=== PATIENT | female | born 1935 | race Caucasian/White ===

== ENCOUNTER 2019-11-18 07:37 | Day surgery (SDC) | payer MEDICARE, SELFPAY ==
[2019-06-13 11:11] VITALS: BMI 28.0
[2019-11-10 13:53] VITALS: BMI 28.0
--- NOTE | 2019-11-12 09:05 | EKG12_ITS ---
Test Reason : PREOP Blood Pressure : / mmHG Vent. Rate : 076 BPM Atrial Rate : 076 BPM P-R Int : 226 ms QRS Dur : 086 ms QT Int : 382 ms P-R-T Axes : 055 -21 053 degrees QTc Int : 429 ms Sinus rhythm with 1st degree A-V block Otherwise normal ECG Confirmed by BETO THOMAS ([id number]), copy editor LEVI HOUSE ([id number]) on 11/13/2019 2:37:11 PM Referred By: Radha Parisi Confirmed By:BETO THOMAS
[2019-11-12 09:50] LABS: Hematocrit 39.3 % (37-47); Hemoglobin 12.6 g/dL (12.0-15.0); Mean Corp Hgb Conc 32.1 g/dL (32-36); Mean Corpuscular Hgb 29.8 pg (27.0-32.0); Mean Corpuscular Volume 92.9 fL (81-99); Mean Platelet Vol. 9.8 fl (6.2-12.0); Platelet Count 177 K/mm3 (150-450); RBC Distribution Width CV 13.7 % (11.6-14.6); Red Blood Count 4.23 M/mm3 (4.2-5.4); White Blood Count 5.2 K/mm3 (4.4-11.0)
[2019-11-12 10:16] LABS: ALB/GLOB Ratio 1.2 RATIO (0.9-2.4); AST(SGOT) 18 U/L (15-37); Alanine Aminotransfer ALT/SGPT 19 U/L (13-56); Albumin, Serum 3.8 g/dL (3.2-5.0); Alkaline Phosphatase 60 U/L (45-117); Anion Gap 4 (5-15); BUN 20 mg/dL (7-18); BUN/Creat Ratio 22.9 RATIO (10-20); Calcium,Total 8.9 mg/dL (8.5-10.1); Chloride 105 mmol/L (98-107); Creatinine, Serum 0.87 mg/dL (0.55-1.02); EST Glomerular Filtration Rate 66 mL/min (>60); Est Glom Filt Rate - Afr Amer 80 mL/min (>60); Globulin 3.3 g/dL (2.2-4.2); Glucose 207 mg/dL (74-106); Potassium 4.1 mmol/L (3.5-5.1); Protein, Total 7.1 g/dL (6.4-8.2); Sodium Level 138 mmol/L (136-145)
[2019-11-12 10:22] LABS: Hemoglobin A1c 7.2 % (3.8-5.6)
[2019-11-18] VITALS (10 sets, daily range): BP systolic 129–154; BP diastolic 65–91; PULSE 62–81; RESP 14–16; TEMP 36.2–37.1; O2SAT 95–100; BMI 26.4; BMI 26.3
--- NOTE | 2019-11-18 | HYST_PTH ---
PATIENT: ILAN PURCELL LOC: [facility] U#:[id number] AGE/SX: 84/F ROOM: RE11/18/[address]: Dr. Radha Parisi MD : [id number] BED: DIS: 11/19/2019 SPEC #: [id number] RECD: 11/18/19 14:11 STATUS: JARON SARA #: [id number] [place]: 11/18/19 00:[address]: Radha Parisi DEPT: SURGICAL PATHOLOGY RECD BY: Cedric Steen ENTERED: 11/19/19 12:04 SP TYPE: HYSTERECT OTHR DR: MD Dr. Lincoln Patel MD Tissues: Uterus, NOS Procedures: Surgery Specimen Level V HEADER OPERATION: ERAS, vaginal hysterectomy, left oophorectomy PRE-OP DIAGNOSIS: Incomplete uterovaginal prolapse TISSUE SUBMITTED: Uterus, cervix, left ovary MICROSCOPIC DIAGNOSIS Uterus, cervix, left ovary, vaginal hysterectomy and left oophorectomy: Cervix - mild chronic cystic cervicitis. Endometrium - simple cystic endometrial hyperplasia without atypia. Endometrial polyp - simple cystic endometrial hyperplasia without atypia. Myometrium - a subserosal leiomyoma (1.2 cm in greatest dimension). Cyst - Consistent with peritubal cyst, multilocular. See comment. SJ:mena 11/20/19 COMMENT Ovarian tissue is not identified. Clinical correlation is necessary. Case has been reviewed in consultation with Dr. Jaramillo who concurs with the above diagnosis. IDC:AM MICROSCOPIC DESCRIPTION Slides are reviewed. GROSS DESCRIPTION Received in fixative is one container labeled with the patient's name and designated uterus. The specimen consists of a uterus with attached cervix measuring 11 x 4.5 x 3 cm and weighing 71 gm. The ectocervix is grossly unremarkable. The cervical os is oval in contour. The endocervical canal measures 3 cm in length and is grossly unremarkable. The triangular endometrial cavity measures 3 x 2.5 cm. Endometrial cavity shows two polyps. Each polyp measures approximately 6 mm in greatest dimension. The velvety, light thakkar endometrium measures up to 0.1 cm in thickness. The myometrium measures 1.5 cm in average thickness. The myometrium contains a firm, rubbery, subserosal nodule resembling a leiomyoma measuring 1.2 cm in greatest dimension. Present free in the container are two irregular fragments of cystic, thakkar tissue ranging in size from 1.5 to 2.5 cm. Fabricator Artificial Breast sections are submitted as follows: 1 - anterior cervix, 2 - posterior cervix, 3 & 4 - anterior endometrium, 5 - anterior endometrial polyp, 6 & 7 - posterior myometrial wall, 8??subserosal myometrial nodule, 9 & 10 - cystic fragments free in container, totally submitted. / AM:mena 11/19/19 TC:5 CPT: 82553
--- NOTE | 2019-11-18 07:14 | HP.PCM_ITS ---
- Problem List (1) Incomplete uterovaginal prolapse Status: Chronic Comment: plan TVH combo case with rodríguez. be mindful of left hip/knee. History and Physical Date of Admission: 11/18/19 Intake Vital Signs 11/10/19 BMI 28.0 11/10/19 Height 5 ft 7 in 11/10/19 Weight: 177 lb 2 oz 11/10/19 BMI 27.7 11/10/19 BP 156/90 H Intake Visit Reasons: pre op Oracle Database Developer Required: No Accompanied by: Daughter Is patient in pain?: No Allergies Sulfa (Sulfonamide Antibiotics) Allergy (Intermediate, Verified 11/10/19 13:24) Rash Medications aspirin 81 mg chewable tablet 81 mg PO DAILY 06/13/19 [History Confirmed 11/10/19] metformin 500 mg tablet 500 mg PO BID 06/13/19 [History Confirmed 11/10/19] metoprolol tartrate 100 mg tablet 100 mg PO BID 06/13/19 [History Confirmed 11/10/19] ramipril 10 mg capsule 10 mg PO BID 06/13/19 [History Confirmed 11/10/19] simvastatin 20 mg tablet 20 mg PO DAILY 06/13/19 [History Confirmed 11/10/19] Is last menstrual period known: No Post menopausal: Yes Patient : No : No [facility] Medical History Arthritis (Acute) CHF (congestive heart failure) (Acute) Diabetes (Acute) Hyperlipidemia (Acute) Hypertension (Chronic) Surgical History H/O heart artery stent (Acute) H/O ovarian cystectomy (Acute) Hip joint replacement status (Acute) History of appendectomy (Acute) Total knee replacement status (Acute) Family History Mother Diabetes Social History (Updated 11/10/19 @ 14:[address] Radha Parisi MD) Smoking Status: Never smoker alcohol intake: never substance use type: does not use caffeine: No what type of physical activity do you participate in: none seatbelt use: always do you feel safe at home: Yes HPI pre op: Details: ILAN PURCELL is a 84 year old who presents for preoperative visit planning a TVH LSO combo case with Dr. Childs. Pregancy History 3 Elective abortions Hx Para 3 Spontaneous abortions Hx # Term Pregnancies Ectopic pregnancies Hx # Pregnancies Multiple births # of living children ROS Const Constitutional: Denies fatigue, fever(s), headache(s), increased appetite, poor appetite, weight gain or weight loss ENT ENT: Denies dizziness or dry mouth Cardio Card: Denies chest pain Resp Resp: Denies cough or dyspnea GI GI: Reports as per HPI; denies abdominal pain, constipation, nausea or vomiting : Reports prolapse symptoms, urinary frequency, urinary incontinence and urinary urgency Musc Musc: Reports joint pain and back pain Skin Skin/Breast: Denies hair loss, change in hair, dry skin, breast lump, breast pain or breast skin changes Neuro Neuro: Denies dizziness Psych Psych: Denies anxiety or depression Endo Endo: Denies cold intolerance, excessive sweating, heat intolerance or increased thirst Gilberto/Lymph Hematologic/Lymphatic: Denies easy bleeding, Denies easy bruising, Denies enlarged lymph nodes Exam Const General: cooperative, healthy appearing, comfortable, no acute distress, well developed Nutritional Appearance: average body habitus Orientation: alert [facility] Head: normal to inspection, normocephalic Ears: hearing grossly normal bilaterally, external ears normal Nose: external nose normal, nares normal Face and sinus: normal facial exam Neck Neck: normal visual inspection, no lymphadenopathy, trachea midline Thyroid: thyroid normal Chest Chest palpation & inspection: normal inspection of the chest Resp Effort & Inspection: normal respiratory effort Auscultation: clear to auscultation bilaterally Cardio Rate: regular rate Rhythm: regular rhythm Heart Sounds: S1 normal, S2 normal GI Inspection: normal to inspection, non-distended Palpation: soft, no hepatosplenomegaly Musc Cervical Spine: other Other: gross motor intact no deficits, full bilateral strength Skin General: no rashes or lesions noted Neuro General: alert, awake, moves all extremities, no focal motor deficits Motor: muscle tone normal throughout Extrem General: normal to inspection, no pedal edema Psych Appearance: grossly normal Mental Status: mental status grossly normal Affect: normal affect Speech and Movement: speech and movement normal Assessment & Plan Problems 1. Incomplete uterovaginal prolapse N81.2 plan TVH combo case with rodríguez. be mindful of left hip/knee. Plan After discussing the patient's diagnosis and treatment plan options, patient wishes to proceed with surgical management. I have discussed with the patient the risks, benefits, and alternatives of the procedure which include but are not limited to risks of anesthesia, bleeding, infection, possible damage to bowel, bladder, or surrounding vasculature which could lead to additional surgery to evaluate any complications. Patient agrees to procedure and wishes to proceed. ACOG/uptodate references given for additional information regarding procedure. Coding Level of Care Code No Charge Diagnoses Incomplete uterovaginal prolapse N81.2 UPDATE- I have seen the patient and performed any clinically relevant updates to the history and physical exam. Radha Parisi MD
[2019-11-18 08:21] LABS: Bedside Glucose 244 mg/dL (70-110)
[2019-11-18] MEDS: Acetaminophen 500 MG Tablet 1000 MG PO ×3 (08:26→22:21)
[2019-11-18] MEDS: Scopolamine 1mg/72hr Patch 1 PATCH TRANSDERM. (08:26)
[2019-11-18] MEDS: Gabapentin 600 MG Tablet PO (08:27)
[2019-11-18] MEDS: Celecoxib 200 MG Capsule 400 MG PO (08:28)
[2019-11-18] MEDS: Lactated Ringers 1,000 ML 40 ML IV (08:43)
[2019-11-18] MEDS: dexAMETHasone 10 MG/ML Vial 8 MG IV (08:44)
[2019-11-18] MEDS: Enoxaparin 40 MG/0.4 ML Syringe SC (08:50)
[2019-11-18] MEDS: Insulin Lispro 100 UNIT/ML INSULN.PEN SC ×4 (08:57→22:27)
[2019-11-18] MEDS: Cefazolin 2 GM in 0.9% Normal Saline 100 ML IV (09:56)
--- NOTE | 2019-11-18 10:00 | PCM.OPRPT ---
Problem List (1) Incomplete uterovaginal prolapse Status: Chronic Comment: plan TVH combo case with rodríguez. be mindful of left hip/knee. Report of Operation Date of Procedure: 11/18/19 Pre-Operative Diagnosis: prolapse Post-Operative Diagnosis: same plus left complex cystic ovary Surgery/Procedure Performed:: tvh left oophorectomy Description of Surgical Findings:: nl uterus tubes right ovary and multicystic left ovary locomotive switch operator: Rosalind Gage Type of Anesthesia:: General Special Medications: none Specimen's removed: uterus Drains: daley Estimated Blood Loss (mL): 150 Fluids Replaced: crystalloid Description of Procedure: Patient was taken to the operating room and was placed under general anesthesia was prepped and draped in normal sterile fashion in the dorsal lithotomy position. Preoperative antibiotics and SCDs and Daley catheter was placed inside the bladder. Weighted speculum was placed in the vagina and the anterior and posterior lip of the cervix was grasped with 2 Khari clamps and circumferentially injected with dilute vasopressin. A circumferential incision was made with a scalpel and the posterior cul-de-sac was entered into sharply and a longneck speculum was placed. The anterior cul-de-sac was also dissected down and entered into sharply and the uterosacral ligaments were clamped cut and suture ligated bilaterally followed by the cardinal ligaments which were Clamped cut and suture ligated bilaterally with 0 Monocryl. The uterus serially descended and progressive bites were taken bilaterally up to the level of the utero-ovarian ligament bilaterally which was clamped transected and double ligated with 0 Monocryl suture and 0 Vicryl free tie. Bilateral fallopian tubes and ovaries were visualized but difficult to see. The left ovary was noted to be complex and cystic in appearance and therefore the decision to remove it was made. The IP ligament was transected at the base of the ovary and ovary removed and sent to pathology for analysis. Pedicle was double ligated with 0 Monocryl and 0 Vicryl. Additional bleeding was noted at the area above where the tip of the clamp was and this was grasped with a ring angle clamp and 2 separate areas and sutured with 2-0 Vicryl to obtain hemostasis. Bilateral pelvic sidewalls were again double checked and hemostasis was noted. Posterior peritoneum and the vagina were closed with [id number] 0 Vicryl pop offs including the posterior and anterior peritoneum in the reapproximation. Excellent hemostasis was noted. All instruments removed from the vagina clear urine was noted at the end of the procedure. see dr rareguin's note for additional operative information. Grafts/Implants Used: see rodríguez's note - Complications none - Admit VTE Documentation VTE Present on Admission: No VTE Mechan Device Prophylaxis: SCD's Multi Select Codes - Urinary/Genital Urinary/Genital CPT Codes: 04601 TVH+BS/O <250gr uterus
--- NOTE | 2019-11-18 10:02 | PCM.DC.VHY ---
Discharge Diet: No Restrictions Discharge Activity: Return to Normal Activity, May Not Drive, May Shower May resume sexual activity in: 6-8 weeks Call your doctor if your incision/area has: Continuous Slow Oozing, Sudden Increased Bleeding, Increased Pain/ Swelling, Increased Redness, Foul Smelling Discharge Call your doctor if you observe: Fever of 101 or Higher, Inability to urinate, Inability to have a bowel movement, Using more than one pad per hour Allergies/Adverse Reactions: Allergies Sulfa (Sulfonamide Antibiotics) Allergy (Intermediate, Verified 11/18/19 08:10) Rash Medications to take at Discharge aspirin 81 mg chewable tablet 81 mg PO DAILY 06/13/19 metformin 500 mg tablet 500 mg PO BID 06/13/19 metoprolol tartrate 100 mg tablet 100 mg PO BID 06/13/19 ramipril 10 mg capsule 10 mg PO BID 06/13/19 simvastatin 20 mg tablet 20 mg PO DAILY 06/13/19 Naproxen [Naprosyn] 250 - 500 mg PO Q8H PRN PRN #30 tab 11/18/19 Oxycodone HCl/Acetaminophen [Percocet 5-325] 1 - 2 tab PO Q6H PRN PRN 7 Days #15 tab 11/18/19 The following prescriptions were given: Naproxen [Naprosyn] 250 - 500 mg PO Q8H PRN PRN #30 tab PRN Reason: MILD PAIN Transmission Status: Received by [facility] Oxycodone HCl/Acetaminophen [Percocet 5-325] 1 - 2 tab PO Q6H PRN PRN 7 Days #15 tab PRN Reason: Pain Transmission Status: Received by [facility] Orders to be completed after discharge: Magnesium Time Frame: 11/11/19, Facility: [facility], Location: Laboratory Primary Care Physician: Lincoln Canales MD [Primary Care Provider] - Test Results: Test results from this visit will be discussed in further detail at your follow-up appointment, if applicable. Please Follow Up With: Radha Parisi MD - [phone]
--- NOTE | 2019-11-18 10:46 | HP.PCM_ITS ---
Problem List (1) Urethral hypermobility Status: Acute (2) Incomplete uterovaginal prolapse Status: Chronic Comment: plan TVH combo case with rodríguez. be mindful of left hip/knee. History of Present Illness Date of Admission: 11/18/19 Chief Complaint: pelvic prolapse The patient is a 84 year old F with pelvic organ prolapse. She has undergone cystoscopy and urodynamics. Risks benefits and alternatives were discussed with her and her daughter. She has decided to proceed with surgical intervention. The specific risks of COVID-19 were also discussed. Past Medical History Past Medical History (Chronic Problems): Chronic Problems (Last Reviewed 11/10/19 @ 13:25 by Ana Santiago) Incomplete uterovaginal prolapse (Chronic) plan TVH combo case with rodríguez. be mindful of left hip/knee. Medical History: Medical History (Last Reviewed 11/18/19 @ 10:[address] Val Childs MD) Arthritis M19.90 CHF (congestive heart failure) I50.9 Diabetes E11.9 Hyperlipidemia E78.5 Hypertension I10 Allergies Sulfa (Sulfonamide Antibiotics) Allergy (Intermediate, Verified 11/18/19 08:10) Rash Home Medications: Ambulatory Orders Medication Instructions Recorded aspirin 81 mg chewable tablet 81 mg PO DAILY 06/13/19 metformin 500 mg tablet 500 mg PO BID 06/13/19 metoprolol tartrate 100 mg tablet 100 mg PO BID 06/13/19 ramipril 10 mg capsule 10 mg PO BID 06/13/19 simvastatin 20 mg tablet 20 mg PO DAILY 06/13/19 Naproxen [Naprosyn] 250 - 500 mg PO Q8H PRN PRN #30 tab 11/18/19 Oxycodone HCl/Acetaminophen 1 - 2 tab PO Q6H PRN PRN 7 Days 11/18/19 [Percocet 5-325] #15 tab Surgical History: Surgical History (Last Reviewed 11/18/19 @ 10:[address] Val Childs MD) H/O heart artery stent Z95.5 H/O ovarian cystectomy Z98.890, Z87.42 Hip joint replacement status Z96.649 left History of appendectomy Z90.49 Total knee replacement status Z96.659 left Smoking Status: Never smoker Review of Systems Constitutional: Denies: Anorexia, Chills, Fever Eyes: Denies: Vision Change HEENT: Denies: Difficulty Swallowing, Visual Changes Cardiovascular: Denies: Chest Pain, Chest Pressure Respiratory: Denies: Cough, Shortness of Breath Gastrointestinal: Denies: Abdominal Pain, Nausea, Vomiting Genitourinary: Reports: Urgency. Denies: Dysuria, Hematuria Gynecological: Denies: Vaginal bleeding, Vaginal itching Musculoskeletal: Denies: Muscle pain Skin: Denies: Wounds Neurological: Denies: Difficulty swallowing Endocrine: Denies: Change in Body Habitus VTE Information - Inpt Only VTE Present on Admission: Yes VTE Mechan Device Prophylaxis: SCD's VTE Pharm Prophylaxis ordered?: Yes Patient Problems: Active and Suspected Problems (Last Reviewed 11/10/19 @ 13:25 by Ana Santiago) Urethral hypermobility (Acute) - Physical Exam Vitals/I&O's: Vital Signs Temp Pulse Resp BP Pulse Ox 98.8 F 76 15 135/75 H 98 11/18/19 08:12 11/18/19 08:12 11/18/19 08:12 11/18/19 08:12 11/18/19 08:12 Oxygen Delivery Method Room Air Weight: 78.9 kg Body Mass Index (BMI) 26.4 General: Alert, Oriented x3, Cooperative, No apparent distress HEENT: Atraumatic, EOMI Oral: Moist Mucosa Neck: Supple, Trachea Midline Lungs: Normal air movement Cardiovascular: Regular rate Abdomen: Soft, Non Tender, Non-Distended Extremities: No cyanosis Skin: No rashes Musculoskeletal: No Muscle Wasting Neurological: Cranial nerves II-XII grossly intact, Neuro grossly intact Psych/Mental Status: Normal Affect Laboratory Results 11/18/19 08:15: POC Glucose 244 H Current Medications Lactated Ringer's () 1,000 mls @ 40 mls/hr IV .Q25H REINALDO Last Admin: 11/18/19 08:43 Dose: 40 mls/hr Documented by: Lactated Ringer's () 1,000 mls @ 70 mls/hr IV .[id number] [facility] Insulin Human Lispro (Humalog Kwikpen (Bkc)) 0 unit SC Q4H PRN PRN; Protocol PRN Reason: BG >/= 180, SEE PROTOCOL Last Admin: 11/18/19 08:57 Dose: 2 units Documented by: Assessment/Plan All Active Problems (Last Reviewed 11/10/19 @ 13:25 by Ana Santiago) Urethral hypermobility (Acute) Proceed with surgical intervention, anterior repair with dermis, bilateral sacrospinous ligament fixation, midurethral sling and cystoscopy Procedure Criteria Procedure Type: Elective COVID Risk Discussion: The surgeon/proceduralist and patient have discussed in detail the risk of exposure to and/or potential harm posed by the COVID-19 virus with having a surgery/procedure at this time versus the risk of delaying the surgery/procedure. It is not possible to know either the risk of delaying the surgery or procedure or chance of getting an infection with perfect accuracy, but a joint decision was made between the patient and the surgeon/proceduralist to proceed at this time with the scheduled surgery/procedure as indicated on the consent form.
[2019-11-18] MEDS: Lactated Ringers 1,000 ML 70 ML IV ×3 (12:40→22:30)
[2019-11-18] MEDS: Estrogens,Conj. 1 Tube 1 DOSE (12:48)
[2019-11-18] MEDS: Ondansetron 4 MG/2 ML Vial IV (13:00)
[2019-11-18] MEDS: Vasopressin 20 UNITS/ML Vial (13:21)
[2019-11-18 13:41] LABS: Bedside Glucose 190 mg/dL (70-110)
--- NOTE | 2019-11-18 13:59 | OP.PCM_ITS ---
Problem List (1) Urethral hypermobility Status: Acute (2) Incomplete uterovaginal prolapse Status: Chronic Comment: plan TVH combo case with rodríguez. be mindful of left hip/knee. Report of Operation Date of Procedure: 11/18/19 Pre-Operative Diagnosis: Uterovaginal prolapse, urethral hypermobility Post-Operative Diagnosis: Same Surgery/Procedure Performed:: Anterior repair with dermis, posterior repair with dermis, bilateral sacrospinous ligament fixation, mid urethral sling, cystoscopy with bilateral ureteral catheterization Type of Anesthesia:: General Estimated Blood Loss (mL): 50cc Description of Procedure: The patient is an 84-year-old female with pelvic organ prolapse who underwent evaluation with cystoscopy and urodynamics. Informed consent was obtained after discussing risks benefits and alternatives including that of COVID-19. Patient was taken to the operating room and placed on the operating room table. Anesthesia monitored the head, neck, airway, IV access and vital signs throughout the case. Once anesthesia was appropriately ministered the patient was prepped and draped in usual sterile fashion. A Jaramillo catheter was inserted sterilely. Dr. Blair Plummer proceeded with her portion of the procedure and closed the vaginal cuff. The anterior vaginal wall was injected with vasopressin for hydrostatic dissection and hemostatic control. A midline vertical incision approximately 2-1/2 cm in length was then made in both sharp and blunt dissection was performed bilaterally until the ischial spines were palpable and freed from surrounding tissues. On the patient's right side, there is an area of concern for ureteral presence that was left in place and the sacrospinous suture was placed around it. On the patient's left side, I had difficulty freeing the sacrospinous ligament from the surrounding tissues. There were no issues once the suture was passed. The sutures were then passed through the dermis and then out into the apex of the vagina in full-thickness fashion. The dermis was then sutured in interrupted fashion laterally to the white lines and in the tissues adjacent to the bladder neck. The vaginal mucosa was then closed with running interlocking 2-0 Vicryl. The dermis was then tied down to the sacrospinous ligaments bilaterally. At this time the cystoscope was inserted through the urethra under direct visualization into the urinary bladder. The bladder mucosa was visualized in its entirety. There were no injuries, foreign body or defects to the bladder identified. Bilateral ureteral orifices were visualized and intubated with a whistle-tip catheter without difficulty to 20 cm. The Jaramillo catheter was then reinserted and attention was turned towards the posterior vaginal wall. It was injected submucosally with vasopressin. A midline incision was made and then sharp and blunt dissection was performed until the rectovaginal fascia was identified. The patient's pelvis is wide and the decision was made to use dermis to bridge the defect centrally. It was tacked to the rectovaginal fascia on either side using 2-0 Vicryl interrupted sutures. The perineal body was brought together as much as possible in a 2 layer closure. The vaginal mucosa was then closed over the repair using running interlocking 2-0 Vicryl. The area of the mid urethra was then injected in the area of the submucosa with vasopressin. A midline incision was made. Dissection on either side of the urethra was done with avoidance of entry into the urethra. Using the trochars the Altis was passed without difficulty. It lay flat against the urethra without tension. The tensioning suture was cut and the mucosa was closed over it using running interlocking Vicryl. A cystourethroscopy through the urethra was then performed revealing no entry into the urinary bladder or the urethra with the sling. The bladder was emptied and the Jaramillo catheter was replaced. The vagina was packed with Premarin cream and vaginal packing. There were no complications during the procedure. She was awakened and taken to the recovery room in good condition. Grafts/Implants Used: Dermis ([place]), sling (Altis) - Complications none - Admit VTE Documentation VTE Present on Admission: Yes VTE Mechan Device Prophylaxis: SCD's VTE Pharm Prophylaxis ordered?: Yes
--- NOTE | 2019-11-18 14:07 | PCM.DC.URO ---
Discharge Diet: No Restrictions Discharge Activity: May Not Drive, May Shower May resume sexual activity in: 6-8 weeks Additional Activity Instructions:: No strenuous activity, no exercising, no lifting over 5 pounds, no vacuuming, no swimming, no tub bathing, no hot tubs no intercourse. Patient is to continue insertion of her vaginal estrogen cream Call your doctor if your incision/area has: Continuous Slow Oozing, Sudden Increased Bleeding, Increased Pain/ Swelling, Increased Redness, Foul Smelling Discharge Call your doctor if you observe: Fever of 101 or Higher, Inability to urinate, Inability to have a bowel movement, Using more than one pad per hour Allergies/Adverse Reactions: Allergies Sulfa (Sulfonamide Antibiotics) Allergy (Intermediate, Verified 11/18/19 08:10) Rash Medications to take at Discharge aspirin 81 mg chewable tablet 81 mg PO DAILY 06/13/19 metformin 500 mg tablet 500 mg PO BID 06/13/19 metoprolol tartrate 100 mg tablet 100 mg PO BID 06/13/19 ramipril 10 mg capsule 10 mg PO BID 06/13/19 simvastatin 20 mg tablet 20 mg PO DAILY 06/13/19 Naproxen [Naprosyn] 250 - 500 mg PO Q8H PRN PRN #30 tab 11/18/19 Oxycodone HCl/Acetaminophen [Percocet 5-325] 1 - 2 tab PO Q6H PRN PRN 7 Days #15 tab 11/18/19 The following prescriptions were given: Naproxen [Naprosyn] 250 - 500 mg PO Q8H PRN PRN #30 tab PRN Reason: MILD PAIN Transmission Status: Received by [facility] Oxycodone HCl/Acetaminophen [Percocet 5-325] 1 - 2 tab PO Q6H PRN PRN 7 Days #15 tab PRN Reason: Pain Transmission Status: Received by [facility] Orders to be completed after discharge: Magnesium Time Frame: 11/11/19, Facility: [facility], Location: Laboratory Primary Care Physician: Lincoln Canales MD [Primary Care Provider] - Test Results: Test results from this visit will be discussed in further detail at your follow-up appointment, if applicable. Please Follow Up With: Val Childs MD When: call for appt Proposed Discharge Date: 11/19/19
[2019-11-18 15:17] LABS: Absolute Lymphocyte Count 0.99 X10^3/uL (0.83-4.51); Absolute Neutrophil Count 8.2 X10^3/uL (2.0-7.7); Basophil# 0.02 X10^3/uL; Basophil% 0.2 % (0-1); Eosinophil# 0.01 X10^3/uL; Eosinophils% 0.1 % (0-5); Hematocrit 38.6 % (37-47); Hemoglobin 12.6 g/dL (12.0-15.0); Lymphocyte # 0.99 X10^3/ul (4.0); Lymphocyte % 10.5 % (19-41); Mean Corp Hgb Conc 32.6 g/dL (32-36); Mean Corpuscular Hgb 29.7 pg (27.0-32.0); Mean Platelet Vol. 9.5 fl (6.2-12.0); Monocyte% 2.1 % (0-10); NRBC Flagged by Analyzer 0 % (0-5); Neutrophil # 8.19 X10^3/uL (2.7-7.7); Neutrophil % 86.7 % (47-70); Platelet Count 170 K/mm3 (150-450); RBC Distribution Width CV 13.3 % (11.6-14.6); RBC Distribution Width SD 43.8 fl (35.1-43.9); Red Blood Count 4.24 M/mm3 (4.2-5.4); White Blood Count 9.5 K/mm3 (4.4-11.0)
[2019-11-18] MEDS: Cefazolin 1 GM/50 ML BAG IV ×2 (16:20→22:19)
[2019-11-18] MEDS: Ketorolac 15 MG/ML Vial IV ×2 (16:21→22:21)
[2019-11-18] MEDS: 0.9% Saline Lock 10 ML Syringe IV (16:26)
[2019-11-18 17:16] LABS: Bedside Glucose 183 mg/dL (70-110)
[2019-11-18] MEDS: Docusate Sodium 100 MG Capsule PO (22:19)
[2019-11-18] MEDS: Metoprolol Tartrate 100 MG Tablet PO (22:20)
[2019-11-18] MEDS: Ramipril 10 MG Capsule PO (22:20)
[2019-11-18] MEDS: Atorvastatin Calcium 10 MG Tablet PO (22:20)
[2019-11-18 22:41] LABS: Bedside Glucose 160 mg/dL (70-110)
[2019-11-18] MEDS: Lactated Ringers 300 ML 999 ML IV (23:43)
[2019-11-19 02:25] VITALS: BP 110/52; PULSE 68; RESP 14; TEMP 37; O2SAT 96
[2019-11-19] MEDS: Ketorolac 15 MG/ML Vial IV ×2 (04:53→09:24)
[2019-11-19] MEDS: Acetaminophen 500 MG Tablet 1000 MG PO ×2 (04:53→09:23)
[2019-11-19] MEDS: Cefazolin 1 GM/50 ML BAG IV ×2 (05:01→14:36)
[2019-11-19 05:41] LABS: Hematocrit 33.3 % (37-47); Mean Corpuscular Hgb 30.1 pg (27.0-32.0); Mean Corpuscular Volume 91.2 fL (81-99); Mean Platelet Vol. 9.5 fl (6.2-12.0); Platelet Count 157 K/mm3 (150-450); RBC Distribution Width CV 13.4 % (11.6-14.6); RBC Distribution Width SD 44.3 fl (35.1-43.9); Red Blood Count 3.65 M/mm3 (4.2-5.4); White Blood Count 8.6 K/mm3 (4.4-11.0)
[2019-11-19 05:58] LABS: Anion Gap 4 (5-15); BUN 20 mg/dL (7-18); BUN/Creat Ratio 20.6 RATIO (10-20); Calcium,Total 8.1 mg/dL (8.5-10.1); Chloride 104 mmol/L (98-107); Creatinine, Serum 0.97 mg/dL (0.55-1.02); EST Glomerular Filtration Rate 58 mL/min (>60); Est Glom Filt Rate - Afr Amer 70 mL/min (>60); Estimated Creatinine Clearance 44.33 ml/min; Glucose 142 mg/dL (74-106); Potassium 4.1 mmol/L (3.5-5.1); Sodium Level 136 mmol/L (136-145)
[2019-11-19 06:55] LABS: Bedside Glucose 115 mg/dL (70-110)
--- NOTE | 2019-11-19 08:41 | PCM.PN.OB ---
Patient Problems: Active and Suspected Problems (Last Reviewed 11/18/19 @ 10:[address] Val Childs MD) Urethral hypermobility (Acute) Subjective: Pain controlled. Tolerating po intake. Denies SOB, CP. States mild dizziness due to pain medication. - Physical Exam Vitals/I&O's: Vital Signs Temp Pulse Resp BP Pulse Ox 98.6 F 68 14 110/52 L 96 11/19/19 02:25 11/19/19 02:11/19/19 02:11/19/19 02:11/19/19 02:25 Oxygen Flow Rate (L/min) 2 Oxygen Delivery Method CPAP Weight: 173 lb Body Mass Index (BMI) 26.3 Intake and Output for Last 24 Hours 11/17/19 11/18/19 11/19/19 23:59 23:59 23:59 Intake Total 2814.34 / 2814.34 1664.83 / 1664.83 Output Total 950 / 950 350 / 350 Balance 1864.34 / 1864.34 1314.83 / 1314.83 General: Oriented x3 Lungs: - - normal respiratory effort Abdomen: Soft, Non-Distended Laboratory Results 11/18/19 13:35: POC Glucose 190 H 11/18/19 14:55: WBC 9.5, RBC 4.24, Hgb 12.6, Hct 38.6, MCV 91.0, MCH 29.7, MCHC 32.6, RDW Std Deviation 43.8, RDW Coeff of Andrea 13.3, Plt Count 170, MPV 9.5, Immature Gran % (Auto) 0.400, Neut % (Auto) 86.7 H, Lymph % (Auto) 10.5 L, Jones % (Auto) 2.1, Eos % (Auto) 0.1, Baso % (Auto) 0.2, Absolute Neuts (auto) 8.2 H, Absolute Lymphs (auto) 0.99, Nucleated RBC % 0 11/18/19 16:29: POC Glucose 183 H 11/18/19 22:23: POC Glucose 160 H 11/19/19 05:25: WBC 8.6, RBC 3.65 L, Hgb 11.0 L, Hct 33.3 L, MCV 91.2, MCH 30.1, MCHC 33.0, RDW Std Deviation 44.3 H, RDW Coeff of Andrea 13.4, Plt Count 157, MPV 9.5 11/19/19 05:25: Sodium 136, Potassium 4.1, Chloride 104, Carbon Dioxide 28.0, Anion Gap 4 L, BUN 20 H, Creatinine 0.97, Estim Creat Clear Calc 44.33, Est GFR (MDRD) Af Amer 70, Est GFR (MDRD) Non-Af 58 L, BUN/Creatinine Ratio 20.6 H, Glucose 142 H, Calcium 8.1 L 11/19/19 06:34: POC Glucose 115 H Current Medications Acetaminophen (Tylenol) 1,000 mg PO Q6H [facility] Last Admin: 11/19/19 04:53 Dose: 1,000 mg Documented by: Atorvastatin Calcium (Lipitor) 10 mg PO QHS [facility] Last Admin: 11/18/19 22:20 Dose: 10 mg Documented by: Dextrose (D50w Syringe) 0 gm IV X1 PRN; Protocol PRN Reason: Hypoglycemia Docusate Sodium (Colace) 100 mg PO BID [facility] Last Admin: 11/18/19 22:19 Dose: 100 mg Documented by: Enoxaparin Sodium (Lovenox) 40 mg SC DAILY [facility] Glucagon () 1 mg IM .X1 PRN PRN Reason: Hypoglycemia Cefazolin Sodium () 1 gm in 50 mls @ 100 mls/hr IV Q8 [facility] Last Infusion: 11/19/19 05:35 Dose: Infused Documented by: Sodium Chloride () 250 mls @ 15 mls/hr IV .[id number] PRN PRN Reason: Saline Flush Insulin Human Lispro (Humalog Kwikpen (Bk)) 0 unit SC ACHS [facility]; Protocol Last Admin: 11/19/19 06:56 Dose: Not Given Documented by: Ketorolac Tromethamine (Toradol (Bkc)) 15 mg IV Q6H [facility] Stop: 11/19/19 22:01 Last Admin: 11/19/19 04:53 Dose: 15 mg Documented by: Magnesium Oxide (Mag-Ox 400) 400 mg PO DAILY PRN PRN PRN Reason: Constipation Metoprolol Tartrate (Lopressor (Beta Avila)) 100 mg PO BID [facility] Last Admin: 11/18/19 22:20 Dose: 100 mg Documented by: Nutritional Formula (Lactose Free) (Ensure Enlive) 120 ml PO TIDCM [facility] Last Admin: 11/18/19 16:26 Dose: Not Given Documented by: Ondansetron HCl (Zofran Odt) 4 mg PO Q6H PRN PRN PRN Reason: NAUSEA Oxycodone HCl (Oxyir) 5 - 10 mg PO Q4H PRN PRN PRN Reason: Pain Score 4-10/10 Ramipril (Altace) 10 mg PO BID [facility] Last Admin: 11/18/19 22:20 Dose: 10 mg Documented by: Sodium Chloride () 10 - 40 ml IV UD PRN PRN Reason: SALINE FLUSH Last Admin: 11/18/19 16:26 Dose: 10 ml Documented by: Medical Necessity - Tobacco Use Smoking Status: Never smoker Assessment/Plan All Active Problems (Last Reviewed 11/18/19 @ 10:[address] Val Childs MD) Urethral hypermobility (Acute) TVH LO with combination case Dr Childs postop day #1: Routine care. Fall precautions in place See exam note and discharge orders Dr. Childs Plans home today. Daughter will be with her
[2019-11-19 08:51] VITALS: BP 99/50; PULSE 66; RESP 18; TEMP 36.9; O2SAT 94
[2019-11-19] MEDS: Enoxaparin 40 MG/0.4 ML Syringe SC (09:22)
[2019-11-19 09:23] VITALS: PULSE 66
[2019-11-19] MEDS: Metoprolol Tartrate 100 MG Tablet PO (09:23)
[2019-11-19] MEDS: Ramipril 10 MG Capsule PO (09:23)
[2019-11-19] MEDS: Docusate Sodium 100 MG Capsule PO (09:23)
[2019-11-19] MEDS: 0.9% Saline Lock 10 ML Syringe IV (09:27)
[2019-11-19 12:30] LABS: Bedside Glucose 148 mg/dL (70-110)
[2019-11-19 14:47] VITALS: BP 125/57; PULSE 62; RESP 16; TEMP 36.4; O2SAT 96
[2019-11-19] MEDS: Ondansetron ODT 4 MG Tablet PO (17:27)
== END 2019-11-19 17:30 | disposition home or self-care (01) ==
LOC: SDC 07:38 → AC 07:39 → MS3 10:12
PROVIDERS: Anesthesiology; Urology; PCP Family Medicine; Referring Provider Obstetrics & Gynecology; Visit Provider Obstetrics & Gynecology
PROC: (CPT 58260; principal; 2019-11-18 09:40)
PROC: (CPT 57260; 2019-11-18 09:40)
DX: N81.2 Incomplete uterovaginal prolapse (principal); N36.41 Hypermobility of urethra; N85.01 Benign endometrial hyperplasia; D25.2 Subserosal leiomyoma of uterus; N83.202 Unspecified ovarian cyst, left side; Z11.59 Encounter for screening for other viral diseases; I11.0 Hypertensive heart disease with heart failure; I50.9 Heart failure, unspecified; E11.9 Type 2 diabetes mellitus without complications; M19.90 Unspecified osteoarthritis, unspecified site; E78.00 Pure hypercholesterolemia, unspecified; G25.81 Restless legs syndrome; Z78.0 Asymptomatic menopausal state; Z79.84 Long term (current) use of oral hypoglycemic drugs; Z79.82 Long term (current) use of aspirin; Z79.899 Other long term (current) drug therapy
CPT/HCPCS: 00840; 57260; 57282; 57288; 58262; 36415; 80048; 80053; 82962; 83036; 85025; 85027; 86850; 86900; 86901; 87635; 88307; 93005; 99251; G2023; J7120; A4216; C1758; G0463; J2405; U0003

== ENCOUNTER 2019-11-22 14:20 | Emergency (ER) | payer MEDICARE, SELFPAY ==
[2019-11-18 15:19] VITALS: BMI 26.3
[2019-11-22 14:21] VITALS: BP 184/92; PULSE 77; RESP 16; TEMP 36.6; O2SAT 96; BMI 25.8
--- NOTE | 2019-11-22 14:44 | EKG12_ITS ---
Test Reason : Blood Pressure : / mmHG Vent. Rate : 076 BPM Atrial Rate : 076 BPM P-R Int : 220 ms QRS Dur : 094 ms QT Int : 398 ms P-R-T Axes : 045 -16 039 degrees QTc Int : 447 ms Sinus rhythm with 1st degree A-V block Otherwise normal ECG Confirmed by NANDA TAMEZ, GIO ([id number]), social media editor [employer]EVI [employer]SE ([id number]) on 11/24/2019 1:52:49 PM Referred By: KAYLA Confirmed By:ROSEANNA VEE MD
[2019-11-22 15:03] LABS: Absolute Lymphocyte Count 1.74 X10^3/uL (0.83-4.51); Absolute Neutrophil Count 4.8 X10^3/uL (2.0-7.7); Basophil# 0.03 X10^3/uL; Basophil% 0.4 % (0-1); Eosinophil# 0.23 X10^3/uL; Eosinophils% 3.1 % (0-5); Hematocrit 35.1 % (37-47); Hemoglobin 11.3 g/dL (12.0-15.0); Lymphocyte # 1.74 X10^3/ul (4.0); Lymphocyte % 23.4 % (19-41); Mean Corp Hgb Conc 32.2 g/dL (32-36); Mean Corpuscular Hgb 29.9 pg (27.0-32.0); Mean Corpuscular Volume 92.9 fL (81-99); Mean Platelet Vol. 9.7 fl (6.2-12.0); Monocyte# 0.57 X10^3/uL; Monocyte% 7.7 % (0-10); NRBC Flagged by Analyzer 0 % (0-5); Neutrophil # 4.84 X10^3/uL (2.7-7.7); Neutrophil % 65.1 % (47-70); Platelet Count 171 K/mm3 (150-450); RBC Distribution Width CV 13.4 % (11.6-14.6); RBC Distribution Width SD 45.7 fl (35.1-43.9); Red Blood Count 3.78 M/mm3 (4.2-5.4); White Blood Count 7.4 K/mm3 (4.4-11.0)
[2019-11-22 15:21] LABS: D-Dimer Quantitative (DVT/PE) 2.27 FEU/ug/m (0.27-0.49)
[2019-11-22 15:30] LABS: ALB/GLOB Ratio 1.1 RATIO (0.9-2.4); AST(SGOT) 21 U/L (15-37); Alanine Aminotransfer ALT/SGPT 17 U/L (13-56); Albumin, Serum 3.6 g/dL (3.2-5.0); Alkaline Phosphatase 51 U/L (45-117); Anion Gap 2 (5-15); BUN 11 mg/dL (7-18); BUN/Creat Ratio 15.5 RATIO (10-20); Chloride 108 mmol/L (98-107); Creatinine, Serum 0.71 mg/dL (0.55-1.02); EST Glomerular Filtration Rate 84 mL/min (>60); Est Glom Filt Rate - Afr Amer 101 mL/min (>60); Globulin 3.3 g/dL (2.2-4.2); Glucose 101 mg/dL (74-106); Potassium 4.4 mmol/L (3.5-5.1); Protein, Total 6.9 g/dL (6.4-8.2); Sodium Level 141 mmol/L (136-145)
--- NOTE | 2019-11-22 15:40 | RAD_ITS ---
STUDY: X-RAY - LEFT FEMUR REASON FOR STUDY: Female, 84 years old. LEFT LEG PAIN AND SWELLING. HAD SURGERY ON THE . TECHNIQUE: 4 view(s) of the femur. COMPARISON: None. FINDINGS: Status post hip and knee replacements. No fracture or dislocation. No periprosthetic fracture. No evidence of loosening. Extensive vascular calcification in the pelvis and thigh. Soft tissues and bony structures are otherwise unremarkable. RAD/Femur Min 2 Views IMPRESSION: 1. Left hip and knee replacements. No acute findings. Electronically Signed: Tamela Colmenares MD at 16:18 EDT Tel , Service support ,
--- NOTE | 2019-11-22 16:27 | ED.VISSUMM ---
- ER Visit Summary Date of Service: 11/22/19 Chief Complaint: Bilateral leg swelling History of Present Illness: The patient is a [address] Canales. 4 days ago she had a hysterectomy and bladder suspension by Dr. Ramu Castle and Dr. Blair Plummer. She reports that she has had pain from her left hip down to her left knee since the surgery. She has no pain while at rest. However she has pain is 8 out of 10 when she gets up or down. She denies any trauma to that area. She reports that she has swelling of both ankles that began yesterday. She has had this approximately 3 years ago with CHF and was on Lasix then. However, has not been on Lasix since that time. 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 She is not anticoagulated at this time. Patient reports that she has some cramping to her lower abdomen that is 4 out of 10 in severity. She denies any nausea or vomiting. She had one episode of diarrhea yesterday. There was no blood in her stools or black tarry stools. She reports that her Jaramillo is draining well. Has not been cloudy or bloody. She denies any fever, chills, chest pain, shortness of breath, or other complaints. Physical Examination: Vitals: Stable. Afebrile. General: Well-nourished and well-developed. Head: Normocephalic atraumatic. Neck: Supple, no lymphadenopathy. No JVD. Nontender. Cardiovascular: Regular rate and rhythm. No murmurs. Respiratory: No respiratory distress. Clear to auscultation bilaterally. Abdominal: Soft, nontender, nondistended, normal bowel sounds. No guarding, rebound, or peritoneal signs. Back: Nontender. Extremities: Mild tenderness palpation to the left thigh. There is no erythema or warmth to suggest infection. She has 2+ pitting edema of the left lower extremity and 1+ pitting edema of the right lower extremity.. Skin: Normal color, no rash. Neurologic: Alert and oriented ?3. Cranial nerves II through XII are intact. Normal strength and sensation. Psych: Normal affect. Test Results: EKG is sinus with a first-degree AV block rate of [address] changes. Troponin is negative. BNP is 222. D-dimer is elevated to 2.27. LFTs are normal. Chem-7 shows a chloride of 108. CBC shows an H&H of 11.3 and 35.1. Clinical Impression(s) from Imaging Studies Femur X-Ray 11/22/19 15:40 IMPRESSION: 1. Left hip and knee replacements. No acute findings. Electronically Signed: Tamela Colmenares MD at 16:18 EDT Tel , Service support , Emergency Department Course and Treatment: Patient refused pain medications while here. Unfortunately I am unable to obtain Doppler ultrasounds at this time. She was given a dose of Eliquis p.o. Treatment Plan: Patient will be discharged with [place] for her pain. She will be instructed to return to the hospital tomorrow to have all Dopplers of both her legs. She does understand if these are positive that she would need to be on Eliquis. She is instructed to follow-up with Dr. Childs in 2 days as previously scheduled. Return to the emergency department for any worsening symptoms. Disposition: To home in improved and stable condition. Impression: 1. 4-day status post hysterectomy/bladder suspension. 2. Left thigh pain. 3. Peripheral edema. 4. Elevated d-dimer. This note was generated with [employer] dictation software. It may contain incorrect words, spelling, and punctuation that were not noted in review of the chart prior to signing ED Disposition - Plan for ED Patient: Disposition: Home or Assisted Living Instructions: ED Peripheral Edema, Bilateral Prescriptions: Apixaban [Eliquis] 5 mg PO BID #74 tab Prescription Printed Hydrocodone Bitart/Apap 5-325 [[place] 5MG-325MG] 1 tab PO Q6H PRN PRN 3 Days #10 tab PRN Reason: Pain Prescription Printed Referrals: Lincoln Canales MD [Primary Care Provider] - Val Childs MD [STAFF PHYSICIAN] - 2 Days
[2019-11-22] MEDS: APIXABAN 5 MG TABLET 10 MG PO (16:54)
== END 2019-11-22 16:57 | disposition home or self-care (01) ==
PROVIDERS: Emergency Provider Emergency Medicine; PCP Family Medicine
DX: M79.652 Pain in left thigh (principal); R60.0 Localized edema; R79.89 Other specified abnormal findings of blood chemistry; Z90.710 Acquired absence of both cervix and uterus; Z96.0 Presence of urogenital implants; R19.7 Diarrhea, unspecified; R10.9 Unspecified abdominal pain; M54.9 Dorsalgia, unspecified; G89.29 Other chronic pain; I44.0 Atrioventricular block, first degree; I25.10 Atherosclerotic heart disease of native coronary artery without angina pectoris; I10 Essential (primary) hypertension; E11.9 Type 2 diabetes mellitus without complications; E78.00 Pure hypercholesterolemia, unspecified; Z86.718 Personal history of other venous thrombosis and embolism; Z79.82 Long term (current) use of aspirin; Z79.01 Long term (current) use of anticoagulants; Z79.899 Other long term (current) drug therapy
CPT/HCPCS: 73552; 80053; 83880; 84484; 85025; 85379; 93005; 99285; A4216

== ENCOUNTER → 2019-11-23 10:30 | Outpatient (CLI) | payer MEDICARE, SELFPAY ==
[2019-11-22 14:21] VITALS: BMI 25.8
--- NOTE | 2019-11-23 10:39 | VDLE_ITS ---
Reason For Study: swelling RIGHT LEFT GSV is normal. GSV is normal. CFV is compressible, spontaneous, phasic, CFV is compressible, spontaneous, phasic, competent and demonstrates normal competent, and demonstrates normal augmentation. augmentation. FV is compressible, spontaneous, phasic, FV is compressible, spontaneous, phasic, competent and demonstrates normal competent and demonstrates normal augmentation. augmentation. POP V is compressible, spontaneous, phasic, POP V is compressible, spontaneous, phasic, competent and demonstrates normal competent and demonstrates normal augmentation. augmentation. T/P Trunk is compressible. PTV is compressible. PTV is compressible. LT PerV is compressible. RT PerV is compressible. T/P Trunk is dilated and noncompressible. Procedure Exam performed in department. The exam was diagnostic. A preliminary report was called and/or faxed to Dr. Guallpa. Interpretation Summary There is no evidence of right lower extremity deep vein thrombosis. Acute deep venous thrombosis left tibioperoneal trunk Patent and compressible bilateral great saphenous veins Ordering Physician: Erick Guallpa Performed By: Hamlet Rondon RVT
== END ==
LOC: VL 10:32
PROVIDERS: PCP Family Medicine; Visit Provider Emergency Medicine
DX: M79.89 Other specified soft tissue disorders (principal)
CPT/HCPCS: 93970